=== PATIENT | male | born 1960 | race Caucasian/White ===

== ENCOUNTER 2017-07-18 05:15 | Inpatient (IN) | payer OTHER ==
[2017-07-18] VITALS (9 sets, daily range): BP systolic 142–157; BP diastolic 67–84; PULSE 63–77; RESP 14–20; TEMP 97.8–98.8; O2SAT 90–97
[~2017-07-18] VITALS: Ht 188 cm; Wt 90.2 kg
[~2017-07-18 05:15] MED LIST: ALL220TA
[2017-07-18] MEDS ORDERED: SODIUM CHLOR 0.9% 1000 ML INJ 1,000 ML IV SCH (05:45)
[2017-07-18] MEDS ORDERED: ONDANSETRON HCL 4 MG/2 ML VIAL IV PUSH ONE (05:45)
[2017-07-18] MEDS ORDERED: MORPHINE SULFATE 2 MG/ML SYRINGE IV PUSH ONE (05:45)
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
[2017-07-18] MEDS: SODIUM CHLOR 0.9% 1000 ML INJ 1,000 ML IV SCH ×2 (07:28→17:28)
[2017-07-18] MEDS ORDERED: SENNOSIDES 8.6 MG TAB PO PRN ×2 (07:30→16:30)
[2017-07-18] MEDS ORDERED: ONDANSETRON HCL 4 MG/2 ML VIAL IV PUSH PRN (07:30)
[2017-07-18] MEDS ORDERED: MAGNESIUM HYDROXIDE SUSP 30 ML CUP PO PRN ×2 (07:30→16:30)
[2017-07-18] MEDS ORDERED: LACTULOSE SYRUP 20 GM/30 ML CUP PO PRN ×2 (07:30→16:30)
[2017-07-18] MEDS ORDERED: CHLORHEXIDINE GLUCONATE 2 % 1 PACK (2 CLOTHS) TOP PRN (07:30)
[2017-07-18] MEDS ORDERED: BISACODYL 10 MG SUPP RECTAL PRN ×2 (07:30→16:30)
[2017-07-18] MEDS ORDERED: MISCELLANEOUS NURSING INFORMATION XX SCH (07:30)
[2017-07-18] MEDS ORDERED: MORPHINE SULFATE 2 MG/ML SYRINGE IV PUSH PRN (07:45)
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
[2017-07-18] MEDS: MORPHINE SULFATE 4 MG/ML INJ IV PUSH PRN ×3 (08:12→16:50)
[2017-07-18] MEDS ORDERED: PILL SPLITTER OTHER PRN (08:15)
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
[2017-07-18] MEDS: DOCUSATE SODIUM 50 MG/SENNA 8.6 MG TAB PO SCH ×2 (10:40→20:17)
[2017-07-18] MEDS: ACETAMINOPHEN 1000 MG/100 ML 100 ML IV SCH ×3 (10:40→20:19)
[2017-07-18] MEDS: METHOCARBAMOL 500 MG TAB PO SCH ×2 (10:40→16:50)
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
[2017-07-18] MEDS ORDERED: ZOLPIDEM TARTRATE 5 MG TAB PO PRN (16:30)
[2017-07-18] MEDS ORDERED: ACETAMINOPHEN 650 MG/20.3 ML UDC NG PRN (16:30)
[2017-07-18] MEDS ORDERED: ALUMINUM/MAGNESIUM/SIMETH 30 ML CUP PO PRN (16:30)
[2017-07-18] MEDS ORDERED: PROMETHAZINE INJ 25 MG/ML VIAL IM PRN (16:30)
[2017-07-18] MEDS ORDERED: cloNIDine HCL 0.1 MG TAB PO PRN (16:30)
[2017-07-18] MEDS ORDERED: RESP: ALBUTEROL 2.5 MG/3 ML NEB (PRN) NEB (16:30)
[2017-07-18] MEDS ORDERED: ACETAMINOPHEN/HYDROcodone 325 MG/10 MG TAB PO PRN (16:30)
[2017-07-18] MEDS ORDERED: SODIUM CHLORIDE 0.9% FLUSH 10 ML FLUSH IV FLUSH PRN (16:30)
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
[2017-07-18] MEDS: ENOXAPARIN SODIUM 40 MG/0.4 ML SYRINGE SQ SCH (17:37)
[2017-07-18] MEDS: SODIUM CHLORIDE 0.9% FLUSH 10 ML FLUSH IV FLUSH SCH (20:19)
[2017-07-18] MEDS: BACITRACIN TOP OINT 15 GM TUBE TOP SCH (21:27)
[2017-07-19] VITALS (7 sets, daily range): BP systolic 130–165; BP diastolic 67–84; PULSE 60–106; RESP 17–20; TEMP 97.6–100; O2SAT 91–95
[2017-07-19] MEDS: ACETAMINOPHEN/HYDROcodone 325 MG/10 MG TAB PO PRN ×6 (01:02→19:55)
[2017-07-19] MEDS: METHOCARBAMOL 500 MG TAB PO SCH ×3 (02:23→17:22)
[2017-07-19] MEDS: ACETAMINOPHEN 1000 MG/100 ML 100 ML IV SCH (03:28)
[2017-07-19] MEDS ORDERED: CHLORHEXIDINE GLUCONATE 2 % 1 PACK (2 CLOTHS) TOP SCH (04:00)
[2017-07-19 04:28] LABS: AUTOMATED NEUTROPHIL # 5.3 TH/MM3 (1.8-7.7); BASOPHIL # 0.1 TH/MM3 (0-0.2); BASOPHIL % 0.8 % (0.0-2.0); EOSINOPHIL % 0.6 % (0.0-4.0); HEMATOCRIT 37.6 % (39.0-51.0); HEMOGLOBIN 12.9 GM/DL (13.0-17.0); LYMPH % 14.9 % (9.0-44.0); LYMPHOCYTE # 1.1 TH/MM3 (1.0-4.8); MEAN CELL VOLUME 96.5 FL (80.0-100.0); MEAN CORPUSCULAR HEMOGLOBIN 33.2 PG (27.0-34.0); MEAN CORPUSCULAR HGB CONC 34.4 % (32.0-36.0); MEAN PLATELET VOLUME 9.2 FL (7.0-11.0); MONO % 10.1 % (0.0-8.0); MONOCYTE # 0.7 TH/MM3 (0-0.9); NEUT % 73.6 % (16.0-70.0); PLATELET COUNT 143 TH/MM3 (150-450); RED CELL DISTRIBUTION WIDTH 12.8 % (11.6-17.2); WHITE BLOOD COUNT 7.2 TH/MM3 (4.0-11.0)
[2017-07-19 04:46] LABS: BICARBONATE 25.1 MEQ/L (21.0-32.0); CALCIUM 7.7 MG/DL (8.5-10.1); CREATININE 0.9 MG/DL (0.60-1.30)
[2017-07-19] MEDS: SODIUM CHLOR 0.9% 1000 ML INJ 1,000 ML IV SCH (04:52)
[2017-07-19] MEDS ORDERED: ACETAMINOPHEN/HYDROcodone 325 MG/5 MG TAB PO PRN (06:45)
[2017-07-19] MEDS: PANTOPRAZOLE SOD 40 MG DELAYED RELEASE TAB PO SCH (09:01)
[2017-07-19] MEDS: DOCUSATE SODIUM 50 MG/SENNA 8.6 MG TAB PO SCH ×2 (09:01→19:55)
[2017-07-19] MEDS: LIDOCAINE HCL 5% PATCH T-DERMAL SCH (09:02)
[2017-07-19] MEDS: SODIUM CHLORIDE 0.9% FLUSH 10 ML FLUSH IV FLUSH SCH ×2 (09:03→19:56)
[2017-07-19] MEDS: BACITRACIN TOP OINT 15 GM TUBE TOP SCH ×2 (09:03→21:43)
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
[2017-07-19] MEDS: MORPHINE SULFATE 4 MG/ML INJ IV PUSH PRN ×2 (10:52→20:35)
--- NOTE | 2017-07-19 11:21 | RADRPT ---
EXAM DATE/TIME: 07/19/2017 11:00 [facility] COMPARISON: No previous studies available for comparison. INDICATIONS : Right hand pain and swelling. MEDICAL HISTORY : None. SURGICAL HISTORY : None. ENCOUNTER: Initial ACUITY: 3 days PAIN SCORE: 10/10 LOCATION: Right Hand, first digit FINDINGS: Three view examination of the right hand demonstrates no acute fracture or malalignment. There is sof t tissue swelling over the dorsum of the hand.. The carpal bones appear intact. The interphalangea l and metacarpophalangeal joints are intact. Bony mineralization is normal. CONCLUSION: Soft tissue swelling over the dorsum of the hand with no acute fracture or malalignment. Dipesh Llanos MD on July 19, 2017 at 11:15 Board Certified Radiologist. This report was verified electronically.
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
[2017-07-19] MEDS ORDERED: CANE/ALUMINUM/A1 MIS (16:20)
[2017-07-19] MEDS: ENOXAPARIN SODIUM 40 MG/0.4 ML SYRINGE SQ SCH (17:22)
[2017-07-19] MEDS ORDERED: REMOVE OLD LIDOCAINE PATCH T-DERMAL SCH (21:00)
[2017-07-20] VITALS: BP 148/70; PULSE 82; RESP 18; TEMP 99.4; O2SAT 92
[2017-07-20] MEDS: METHOCARBAMOL 500 MG TAB PO SCH ×2 (02:03→09:25)
[2017-07-20] MEDS: ACETAMINOPHEN/HYDROcodone 325 MG/10 MG TAB PO PRN ×2 (02:03→06:00)
[2017-07-20 08:00] VITALS: BP 162/78; PULSE 74; RESP 17; TEMP 99.1; O2SAT 95
[2017-07-20] MEDS ORDERED: fentaNYL 50 MCG/HR PATCH T-DERMAL SCH (08:00)
[2017-07-20] MEDS: SODIUM CHLORIDE 0.9% FLUSH 10 ML FLUSH IV FLUSH SCH (09:00)
[2017-07-20] MEDS: MORPHINE SULFATE 4 MG/ML INJ IV PUSH PRN (09:21)
[2017-07-20] MEDS: LIDOCAINE HCL 5% PATCH T-DERMAL SCH (09:24)
[2017-07-20] MEDS: DOCUSATE SODIUM 50 MG/SENNA 8.6 MG TAB PO SCH (09:25)
[2017-07-20] MEDS: BACITRACIN TOP OINT 15 GM TUBE TOP SCH (09:25)
[2017-07-20] MEDS: PANTOPRAZOLE SOD 40 MG DELAYED RELEASE TAB PO SCH (09:26)
[2017-07-20 12:00] VITALS: BP 179/86; PULSE 68; RESP 18; TEMP 99.4; O2SAT 95
--- NOTE | 2017-07-20 13:16 | HHI.FF ---
Face to Face Verification Diagnosis: (1) Traumatic compression fracture of T6 thoracic vertebra (2) Right rib fracture (3) Pulmonary contusion (4) Acromioclavicular separation (5) Foot fracture, right Physical Therapy Order: Evaluate and Treat, Improve ambulation, Strength and gait training Home Health Nursing Order: Nursing assessment with vital signs I have seen patient Joey Kim on 07/20/17. My clinical findings support the need for the requested home health care services because: Limited ability to care for self High risk of falls I certify that my clinical findings support that this patient is homebound because: Unsteady gait/balance Gigi Thibodeaux Jul 20, 2017 13:16
[2017-07-20] MEDS ORDERED: METH500T3 PO (14:18)
[2017-07-20] MEDS ORDERED: PERI PO (14:18)
[2017-07-20] MEDS ORDERED: HYDR-3583 PO (14:18)
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
[2017-07-20] MEDS ORDERED: REMOVE OLD LIDOCAINE PATCH T-DERMAL SCH (21:00)
[2017-07-23] MEDS ORDERED: REMOVE OLD DURAGESIC (FENTANYL) PATCH T-DERMAL SCH (08:00)
== END 2017-07-20 17:10 | disposition home health service (06) | DRG 552 ==
LOC: NEPC 05:15 → NEDA 07:30 → N03A 09:34 → N06B 14:30
PROVIDERS: ADMIT Surgery Trauma Surgery; ATTEND Surgery Trauma Surgery
DX: S22.050A Wedge compression fracture of T5-T6 vertebra, initial encounter for closed fracture (principal); S27.321A Contusion of lung, unilateral, initial encounter; S22.41XA Multiple fractures of ribs, right side, initial encounter for closed fracture; S01.21XA Laceration without foreign body of nose, initial encounter; S43.401A Unspecified sprain of right shoulder joint, initial encounter; V29.88XA Motorcycle rider (driver) (passenger) injured in other specified transport accidents, initial encounter; S01.511A Laceration without foreign body of lip, initial encounter; Z87.891 Personal history of nicotine dependence; S90.31XA Contusion of right foot, initial encounter
CPT/HCPCS: 71045; 72128; 72131; 73030; 73130; 73620; 80048; 85018; 85025; 87641; 96361; 96374; 96375; J0131; J1650; J2270; J2405; J7030; L0200; L0484